=== PATIENT | female | born 1955 | race African-American/Black ===

== ENCOUNTER 2017-02-02 05:37 | Day surgery (SDC) | payer OTHER ==
--- NOTE | ~2017-02-02 | EGD ---
EGD REPORT [facility] [address] [address] NAME: HARMONY RODRIGUEZ : 53 STATUS : REG [facility]#: [id number] AGE: 61 ADM/REG DATE : 02/02/17 MR#: [id number] REPORT SERV DATE: 02/02/17 DICTATED BY: CASSI REINA DATE: 02/02/17 REPORT STATUS : Draft [facility]ANS[facility] BY: [facility] DATE: 02/02/17 End[facility] Center Patient Name: Harmony Rodriguez Date of : 1955 Attending MD: CASSI REINA MD Procedure Date No Time: 02/02/2017 Procedure: Upper GI endoscopy Indications: Abnormal UGI series Referring MD: JORDAN Kaufman MD Medicines: See the Anesthesia note for documentation of the administered medications Complications: No immediate complications. Procedure: Pre-Anesthesia Assessment: - ASA Grade Assessment: III - A patient with severe systemic disease. After obtaining informed consent, the endoscope was passed under direct vision. Throughout the procedure, the patient's blood pressure, pulse, and oxygen saturations were monitored continuously. The GIF [id number] was introduced through the mouth, and advanced to the second part of duodenum. The upper GI endoscopy was accomplished without difficulty. The patient tolerated the procedure well. Findings: The examined duodenum was normal. A small hiatus hernia was present. A guidewire was placed and the scope was withdrawn. Dilation was performed with a Savary dilator with no resistance at 48 Fr. Retained food in stomach and duodenal bulb precluding 100% examination of stomach Normal mucosa was found in the lower third of the esophagus. Biopsies were taken with a cold forceps for histology. Impression: - Normal examined duodenum. - Hiatus hernia. Dilated. - Retained food in stomach and duodenal bulb precluding 100% examination of stomach - Normal mucosa was found in the lower third of the esophagus. Biopsied. Recommendation: - Patient has a contact number available for emergencies. The signs and symptoms of potential delayed complications were discussed with the patient. Return to normal activities tomorrow. Written discharge EGD REPORT [address] [address] NAME: HARMONY RODRIGUEZ : 53 STATUS : REG [facility]#: [id number] AGE: 61 ADM/REG DATE : 02/02/17 MR#: [id number] REPORT SERV DATE: 02/02/17 DICTATED BY: CASSI REINA DATE: 02/02/17 REPORT STATUS : Draft TRANSCRIBED BY: [employer] DATE: 02/02/17 instructions were provided to the patient. - Clear liquid diet. - Clear liquids today, soft diet tomorrow, regular diet the following day - Continue present medications. Procedure Code(s): --- Professional --- 87417, Esophagogastroduodenoscopy, flexible, transoral; with insertion of guide wire followed by passage of dilator(s) through esophagus over guide wire 49669, Esophagogastroduodenoscopy, flexible, transoral; with biopsy, single or multiple Diagnosis Code(s): --- Professional --- K44.9, Diaphragmatic hernia without obstruction or gangrene R93.3, Abnormal findings on diagnostic imaging of other parts of digestive tract CPT copyright 2013 [employer]. All rights reserved. The codes documented in this report are preliminary and upon manager integration review may be revised to meet current compliance requirements. Cassi Reina MD CASSI REINA MD 02/02/2017 7:18 AM This report has been signed electronically. Number of Addenda: 0 Note Initiated On: 02/02/2017 6:53 AM Scope Withdrawal Time 0 hours 0 minutes 0 seconds [id number] [place] [address]
[~2017-02-02 05:37] MED LIST: ACCO20 PO; APPLE CIDER VINEGAR OR; ASAB PO; ATEN25 PO; CAT1 PO; CLARIT10 PO; ETODOLAC400 MG PO; GLUCCHONDR PO; GLUCPH PO; KLOR-CON M1010 MEQ PO; L20 PO; MAX25 PO; PRILO PO; PROVENT20 INH; PROVHFA INH; SINGULAIR1 PO; VITAMIN D31000 UNIT PO; X5 PO; ZOVI800 PO
== END 2017-02-02 23:59 | disposition home or self-care (01) ==
LOC: DMU 05:37
PROVIDERS: Internal Medicine Gastroenterology
PROC: 0DB38ZX Excision of Lower Esophagus, Via Natural or Artificial Opening Endoscopic, Diagnostic (ICD-10-PCS; principal; 2017-02-02 07:00)
PROC: 0D758ZZ Dilation of Esophagus, Via Natural or Artificial Opening Endoscopic (ICD-10-PCS; 2017-02-02 07:00)
DX: K44.9 Diaphragmatic hernia without obstruction or gangrene (principal); J45.909 Unspecified asthma, uncomplicated; G47.33 Obstructive sleep apnea (adult) (pediatric); I10 Essential (primary) hypertension; I45.10 Unspecified right bundle-branch block; E11.9 Type 2 diabetes mellitus without complications; E66.01 Morbid (severe) obesity due to excess calories; J32.9 Chronic sinusitis, unspecified; M19.90 Unspecified osteoarthritis, unspecified site; F32.9 Major depressive disorder, single episode, unspecified; D64.9 Anemia, unspecified; Z99.89 Dependence on other enabling machines and devices; Z88.5 Allergy status to narcotic agent; Z79.899 Other long term (current) drug therapy; Z98.1 Arthrodesis status; Z90.49 Acquired absence of other specified parts of digestive tract; Z98.890 Other specified postprocedural states; Z90.710 Acquired absence of both cervix and uterus
CPT/HCPCS: 82962; 88305